=== PATIENT | female | born 1990 | race Caucasian/White ===

== ENCOUNTER 2017-11-29 17:57 | Emergency (ER) | payer OTHER ==
[~2017-11-29] VITALS: Ht 154.9 cm; Wt 61.7 kg
[~2017-11-29 17:57] MED LIST: GILTUSS PED-C L60 ML PO; INTESTINEX1 CAP PO; PROTONIX40 MG PO
[2017-11-29] MEDS ORDERED: SYNTHROID50 MCG (18:43)
== END 2017-11-29 21:20 | disposition home or self-care (01) ==
LOC: ER 17:57
DX: K29.70 Gastritis, unspecified, without bleeding (principal)

== ENCOUNTER 2021-01-13 17:38 | Emergency (ER) | payer OTHER ==
[~2021-01-13] VITALS: Ht 154.9 cm; Wt 69.4 kg
[~2021-01-13 17:38] MED LIST changes: +SYNTHROID50 MCG
[2021-01-13] MEDS ORDERED: DICY20TA PO (21:12)
[2021-01-13] MEDS ORDERED: PEPCID AC20 MG PO (21:12)
== END 2021-01-13 21:25 | disposition home or self-care (01) ==
LOC: ER 17:38
DX: R19.7 Diarrhea, unspecified (principal)